=== PATIENT | female | born 1970 | race Caucasian/White ===

== ENCOUNTER → 2021-11-23 | Outpatient (CLI) | payer BC ==
[2021-11-23 13:28] VITALS: BP 122/66; PULSE 70; TEMP 98.5; BMI 27.3
--- NOTE | 2021-11-23 15:21 | P.BASOAP ---
Subjective Progress Note Date: 11/23/21 Principal diagnosis: Dysphagia 51-year-old female known to our service. Patient underwent laparoscopic band placement in 2008. She believes there is 8 mL in her band. For the last year or more she has had increasing dysphagia. Now is only able to tolerate liquids and squishy foods. She's had increased reflux. Mild discomfort at the port site. [place] a popping sensation at the port site 2 months ago. Patient was as low as 128 with her weight. Recently gained about 25 pounds. Says she vomits most mornings. She is interested in band removal. Objective - Vital Signs Vital signs: Vital Signs Temp 98.5 F 11/23/21 13:05 Pulse 70 11/23/21 13:05 Resp BP 122/66 11/23/21 13:05 Pulse Ox FiO2 Intake & Output 11/22/21 11/23/21 11/23/21 18:59 06:59 18:59 Weight 71.214 kg - Exam Abdomen: Soft, nontender, nondistended Assessment/Plan (1) Dysphagia Narrative/Plan: 49-year-old female with dysphagia status post lap band. The patient's band will be emptied at this time. We'll check upper GI. Patient and I discussed options of band removal. She is worried she will regain her weight. We discussed options of conversion to alternative bariatric procedure. Leaning towards gastric bypass at this time. We'll reassess after seeing how the patient does with the band being empty. The patient's lap band port was palpated. The site was aseptically prepped. The Greenberg needle was advanced into the port. A total of 5 ml of fluid was removed. Patient was having some discomfort when I tried to remove more than that. I would say there is probably only a total of about 6 mL in her band. Pressure was held and a sterile dressing was applied. Plan: Date: 11/23/21 Initial Weight: Initial BMI: Current Weight: 71.214 kg Current BMI: 27.3 Type of Surgery: Total Volume in Band: 0 Previous Volume: Volume Removed: 5 Volume Added: Band Size:
--- NOTE | 2021-11-23 15:43 | FL ---
EXAMINATION TYPE: FL barium swallow DATE OF EXAM: 11/23/2021 CLINICAL INDICATION: 51-year-old female R1 3.10, dysphagia and reflux. History of lap band placed shona roximately 12 years ago. Fill removed today. COMPARISON: None Total Fluoroscopy Time: 2 minutes 11 seconds Total images: 33 . FINDINGS: The patient swallowed oral contrast without difficulty or delay. There are moderate tertiary peristal tic contractions. When the patient is prone/supine, there is residual contrast which remains along th e length of the esophagus. Tertiary peristaltic waves are demonstrated along with recurrent episodes of intraesophageal reflux and incomplete clearance. No fixed narrowing or discrete mucosal lesion allowing for single contrast technique. Most of the contrast passes into the stomach. There is a tiny hiatal hernia noted. While the lap band is slightly tilted, there is satisfactory passage across the lap band without any significant restri ction. With the patient prone/supine, Valsalva and positional maneuvers were attempted but no gastroesophage al reflux is demonstrated. IMPRESSION: 1. Slightly tilted lap band. This can be compared to any available outside priors to determine stabil ity. There is no obstruction to suggest prolapse. No significant restriction of flow across the lap b and. 2. Moderate esophageal dysmotility with prominent tertiary peristaltic waves and recurrent episodes o f intraesophageal reflux. There is incomplete clearance when the patient is prone or supine, again, w ith episodes of intraesophageal reflux. 3. Tiny hiatal hernia noted.
== END | disposition home or self-care (01) ==
LOC: BARWHC3 12:38
PROVIDERS: ATTEND Surgery
DX: R13.10 Dysphagia, unspecified (principal)
CPT/HCPCS: 74220; 99212